=== PATIENT | female | born 1965 | race Caucasian/White ===

== ENCOUNTER 2023-12-28 08:18 | Observation (INO) ==
[2023-12-28 09:01] LABS: ABS Lymphocytes 1.5 10^3/uL (1.0-4.8); ABS Monocytes 0.4 10^3/uL (0.0-0.9); ABS Neutrophils 3.1 10^3/uL (1.5-7.6); ABS Nucleated RBC 0.01 10^3/ul; Eosinophil % 0.8 %; Hematocrit 40.1 % (35-45); Hemoglobin 13.8 g/dL (11.5-14.3); Lymphocyte % 29.4 %; Mean Corpuscular Hgb Conc 34.3 g/dL (31-36); Mean Corpuscular Volume 87.4 fL (80-97); Mean Platelet Volume 8.3 fL (7.5-11.2); Nucleated Red Blood Cells % 0.2 %/100WBC (0.0-0.8); Platelet Count 157 10^3/uL (150-450); Red Blood Count 4.58 10^6/uL (3.63-4.92); Red Cell Distribution Width 14.2 % (12-17)
[2023-12-28 09:31] LABS: High Sens Troponin Baseline < 3 pg/mL (<15)
[2023-12-28 09:32] LABS: INR 0.95 (0.83-1.13)
[2023-12-28 09:47] LABS: ALT 31 U/L (7-52); AST 22 U/L (13-39); Albumin 4.4 g/dL (3.2-5.2); Albumin/Globulin Ratio 1.6 (1-3); Alkaline Phosphatase 47 U/L (35-149); Anion Gap 8 mmol/L (2-16); Blood Urea Nitrogen 13 mg/dL (6-24); CO2 Carbon Dioxide 26 mmol/L (22-32); Calcium 9.4 mg/dL (8.6-10.3); Chloride 103 mmol/L (101-111); Creatinine, Serum 0.82 mg/dL (0.51-0.95); Globulin 2.7 g/dL (2-4); Glucose 169 mg/dL (70-100); Potassium 4.1 mmol/L (3.5-5.0); Sodium 137 mmol/L (135-145); Total Bilirubin 0.5 mg/dL (0.2-1.0); Total Protein 7.1 g/dL (6.4-8.9); eGFR CKD-EPI 82.9 (>60)
[2023-12-28] MEDS: Iodixanol (CONTRAST) 320 MG/ML 100 ML SDV IV ONE (10:21)
[2023-12-28 10:27] LABS: High Sensitivity Troponin 1 Hr < 3 pg/mL (<15)
[2023-12-28] MEDS ORDERED: FLUTICAS/UMECLI/VILANT 100-62.5-25 MDI (NF) INH PRN (12:50)
[2023-12-28] MEDS ORDERED: Albuterol HFA INHALER 8 gm MDI INH PRN (12:50)
[2023-12-28 13:15] LABS: Cholesterol 122 mg/dL; LDL Cholesterol 5 mg/dL; Triglycerides 359 mg/dL
[2023-12-28] MEDS ORDERED: Dextrose 50% Syringe 50 ml 25 GM/50 ML SYRINGE IV PUSH PRN (13:21)
[2023-12-28 13:31] LABS: TSH Ultra Thyroid Stim Horm 1.26 mcIU/mL (0.34-5.60)
[2023-12-28] MEDS: Nicotine PATCH 21 MG/24 HR PATCH TRANSDERM SCH (13:37)
[2023-12-28] MEDS: Enoxaparin 40 MG/0.4 ML SYR SUBCUT SCH (13:37)
[2023-12-28 13:42] LABS: Vitamin B12 204 pg/mL (180-914)
[2023-12-28 14:18] LABS: Creatine Kinase 64 U/L (10-223)
[2023-12-28 14:39] LABS: Folate 8.94 ng/mL (5.90-24.80)
[2023-12-28] MEDS: ICOSAPENT ETHYL 1 GM CAPSULE (NF) PO SCH (23:08)
[2023-12-29 08:27] LABS: ABS Eosinophils 0.1 10^3/uL (0.0-0.5); ABS Lymphocytes 1.8 10^3/uL (1.0-4.8); ABS Monocytes 0.4 10^3/uL (0.0-0.9); ABS Nucleated RBC 0.01 10^3/ul; Hematocrit 41.7 % (35-45); Hemoglobin 14.3 g/dL (11.5-14.3); Lymphocyte % 33.7 %; Mean Corpuscular Hemoglobin 30.1 pg (27-33); Mean Corpuscular Hgb Conc 34.4 g/dL (31-36); Mean Corpuscular Volume 87.5 fL (80-97); Mean Platelet Volume 8.6 fL (7.5-11.2); Nucleated Red Blood Cells % 0.1 %/100WBC (0.0-0.8); Platelet Count 161 10^3/uL (150-450); Red Blood Count 4.76 10^6/uL (3.63-4.92); Red Cell Distribution Width 14.5 % (12-17); White Blood Count 5.3 10^3/uL (3.8-11.8)
[2023-12-29] MEDS: CMC:SitaGLIPtin 100 mg TAB (NF) PO SCH (08:40)
[2023-12-29] MEDS: Aspirin EC 81 mg TAB.EC (enteric coated) PO SCH (08:41)
[2023-12-29] MEDS: Dulaglutide (NF) 0.75 MG/0.5 ML SYRINGE SUBCUT SCH (08:42)
[2023-12-29 08:44] LABS: Calcium 9.8 mg/dL (8.6-10.3); Creatinine, Serum 0.65 mg/dL (0.51-0.95); Magnesium 1.5 mg/dL (1.9-2.7); Potassium 4.5 mmol/L (3.5-5.0)
[2023-12-29] MEDS: Albuterol 2.5mg/3 ml (0.083%) NEB.SOLN INH PRN (08:53)
[2023-12-29] MEDS ORDERED: Nicotine PATCH 21 MG/24 HR PATCH TRANSDERM SCH (09:00)
[2023-12-29] MEDS: Magnesium Sulf 4 GM/100 ML IV 4,000 MG/100 ML BAG IVPB ONE (10:03)
[2023-12-29] MEDS ORDERED: Regadenoson 0.4 MG/5 ML SYRINGE ONE (10:50)
[2023-12-29] MEDS ORDERED: Aminophylline 25 MG/ML VIAL ONE (10:50)
[2023-12-29 10:56] VITALS: BP 127/78
== END 2023-12-29 16:00 | disposition home or self-care (01) ==
LOC: EDHOLD 08:18 → ED 08:18 → MEDTELE 13:25
PROVIDERS: ADMIT Hospitalist; ATTEND Hospitalist